=== PATIENT | male | born 1990 | race Caucasian/White ===

== ENCOUNTER 2018-02-26 18:46 | Emergency (ER) | payer OTHER ==
[2018-02-26] MEDS ORDERED: Lidocaine 1% INJ* 10 MG/ML 30 ML SDV INJ ONE (19:14)
--- NOTE | 2018-02-26 19:20 | RAD ---
INDICATION: Right ring finger injury. TECHNIQUE: 3 views of the right brain finger were obtained. FINDINGS: There is diffuse soft tissue swelling which is most prominent at the proximal interphalangeal joint. There is posterior dislocation of the middle phalanx relative the proximal phalanx. The bones are slightly overriding. In addition there is a displaced volar plate fracture at the base of the middle phalanx. There is also a small punctate chip fracture present anteriorly adjacent to the base of the middle phalanx. IMPRESSION: FRACTURE DISLOCATION OF THE FINGER AT THE PROXIMAL INTERPHALANGEAL JOINT.
--- NOTE | 2018-02-26 19:45 | ED ---
Upper Extremity Pain - HPI Summary HPI Summary: 27-year-old male presents with right ring finger injury 2 days ago. He states he fell and work and landed on his right finger. He is not able to bend his finger is stuck at the right PIP. He denies any numbness or tingling. He denies any wrist pain. He denies any other injury. He also has a stye in his left eye. He denies any change in vision. Has been taking ibuprofen for his pain. He is right-handed. - History of Current Complaint Chief Complaint: EDExtremityUpper Stated Complaint: RT HAND INJURY Time Seen by Provider: 02/26/18 18:59 - Allergies/Home Medications Allergies/Adverse Reactions: Allergies Allergy/AdvReac Type Severity Reaction Status Date / Time No Known Allergies Allergy Verified 07/05/16 10:58 Home Medications: Home Medications NK [No Home Medications Reported] 02/26/18 [History Confirmed 02/26/18] PMH/Surg Hx/FS Hx/Imm Hx Endocrine/Hematology History: Denies: Hx Anticoagulant Therapy Cardiovascular History: Denies: Hx Myocardial Infarction Infectious Disease History: No Infectious Disease History: Denies: History Other Infectious Disease, Traveled Outside the [place] in Last 30 Days - Family History Known Family History: Positive: None - Social History Alcohol Use: None Substance Use Type: Reports: None Smoking Status (MU): Light Every Day Tobacco Smoker Have You Smoked in the Last Year: Yes Review of Systems Negative: Fever Negative: Chest Pain Negative: Shortness Of Breath Positive: Myalgia - right finger All Other Systems Reviewed And Are Negative: Yes Physical Exam Triage Information Reviewed: Yes Vital Signs On Initial Exam: Initial Vitals Temp Pulse Resp BP Pulse Ox 98.1 F 80 16 152/90 99 02/26/18 18:51 02/26/18 18:51 02/26/18 18:51 02/26/18 18:51 02/26/18 18:51 Vital Signs Reviewed: Yes Appearance: Positive: Well-Appearing Skin: Positive: Warm, Dry Head/Face: Positive: Normal Head/Face Inspection Eyes: Positive: Normal, Conjunctiva Clear, Other: - stye to left eye ENT: Positive: Pharynx normal Respiratory/Lung Sounds: Positive: Clear to Auscultation, Breath Sounds Present Cardiovascular: Positive: Normal, RRR Musculoskeletal: Positive: Limited @ - pip of right ring finger, Other - Tenderness over PIP, cap refill less than 2 seconds, good pulses Neurological: Positive: Normal Psychiatric: Positive: Normal Procedures - Joint Reduction finger Joint Reduction Site: other Specify Other Joint Reduced: right ring finger Reduction Attempts: 2 - placed in finger splint Pre-Procedure NV Exam: Yes Post Joint Reduction Film: joint not reduced Diagnostics - Vital Signs Vital Signs Temp Pulse Resp BP Pulse Ox 02/26/18 18:51 98.1 F 80 16 152/90 99 - Laboratory Lab Statement: Any lab studies that have been ordered have been reviewed, and results considered in the medical decision making process. - Radiology finger Xray Interpretation: Positive (See Comments) - IMPRESSION: FRACTURE DISLOCATION OF THE FINGER AT THE PROXIMAL INTERPHALANGEAL JOINT. Radiology Interpretation Completed By: Radiologist finger post reduction Xray Interpretation: Positive (See Comments) - partial reduction Radiology Interpretation Completed By: ED Physician Course/Dx - Course Course Of Treatment: 27-year-old male presents with right ring finger injury 2 days ago. He states he fell and work and landed on his right finger. He is not able to bend his finger is stuck at the right PIP. He denies any numbness or tingling. He denies any wrist pain. He denies any other injury. He also has a stye in his left eye. He denies any change in vision. Has been taking ibuprofen for his pain. He is right-handed. On exam has edema noted to the PIP of right ring finger. Neurovascular intact. X-ray shows displacement. Attempted reduction and felt it reduce but then it would pop back. attempted a second reduction and splinted it as best could. X-ray shows some improvement. We'll have follow-up with orthopedist for definitive care. told to place heat on stye. Patient understands agrees with plan. - Diagnoses Differential Diagnosis/HQI/PQRI: Positive: Fracture (Closed), Strain, Sprain Provider Diagnoses: Stye, Finger dislocation Discharge - Sign-Out/Discharge Documenting (check all that apply): Patient Departure - Discharge Plan Condition: Good Disposition: HOME Patient Education Materials: Finger Fracture (ED), Stye (ED) Referrals: Rosemary Sanderson MD [Medical Doctor] - No Primary Care Phys,NOPCP [Primary Care Provider] - Additional Instructions: Keep finger in splint ice, elevate Follow up with ortho Take tyenlol or ibuprofen for pain every 6 hours Return to ED if develop any new or worsening symptoms - Billing Disposition and Condition Condition: GOOD Disposition: Home
[2018-02-26 20:58] VITALS: BP 120/64
--- NOTE | 2018-02-27 07:46 | RAD ---
HISTORY: reduced finger? COMPARISONS: February 26, 2018 at 7:14 PM VIEWS: 3, Frontal, lateral, and oblique views of the fourth digit of the right hand FINDINGS: BONE DENSITY: Normal. BONES: Again noted is a fracture of the volar aspect of the base of the middle phalanx of the fourth digit. JOINTS: There is no arthropathy. ALIGNMENT: There is persistent but decreased dorsal subluxation of the middle phalanx with respect to the proximal phalanx. SOFT TISSUES: Unremarkable. OTHER FINDINGS: None. IMPRESSION: FRACTURE OF THE BASE OF THE MIDDLE PHALANX OF THE FOURTH DIGIT WITH PERSISTENT BUT DECREASED SUBLUXATION OF THE PIP JOINT R0
== END 2018-02-26 20:57 | disposition home or self-care (01) ==
LOC: ED 18:46
DX: H00.029 Hordeolum internum unspecified eye, unspecified eyelid (principal); S63.259A Unspecified dislocation of unspecified finger, initial encounter; M79.644 Pain in right finger(s); F17.210 Nicotine dependence, cigarettes, uncomplicated; X58.XXXA Exposure to other specified factors, initial encounter; Y92.9 Unspecified place or not applicable
CPT/HCPCS: 73140; 96374; 99282

== ENCOUNTER 2018-03-05 09:52 | Day surgery (SDC) | payer OTHER ==
--- NOTE | 2018-02-28 17:42 | HP ---
PREOPERATIVE HISTORY AND PHYSICAL: DATE OF ADMISSION: 03/05/18 [facility] CHIEF COMPLAINT: Right ring finger injury. HISTORY OF PRESENT ILLNESS: Adrian is a 27-year-old male who fell and injured his right hand on 02/20/18. He was seen at the emergency room and had some x-rays, which showed a fracture dislocation of his PIP joint. This was reduced, but he has persistent subluxation of the PIP joint. He has been splinted and has persistent pain. He has been using ibuprofen for pain control. He presents for closed reduction and pinning of the right ring finger PIP joint. PAST MEDICAL HISTORY: Negative. PAST SURGICAL HISTORY: Negative. MEDICATIONS: Ibuprofen 800 mg p.o. t.i.d. p.r.n. DRUG ALLERGIES: None. FAMILY HISTORY: Noncontributory. SOCIAL HISTORY: He lives with his spouse. 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 Smokes a pack of cigarettes a day for 5 years. Occasionally lifts weights and occasionally uses alcohol perhaps 2 times per month. He denies recreational drug use. REVIEW OF SYSTEMS: Negative for cephalic, cardiovascular, respiratory, gastrointestinal, genitourinary, other musculoskeletal, skin, neurologic, endocrine, and hematologic symptoms. PHYSICAL EXAMINATION GENERAL: He is a healthy-appearing, very pleasant young man, in minimal distress at rest. VITAL SIGNS: He is 69 inches, weight is 162 pounds. Pulse 88, blood pressure 102/86, respirations 16. HEENT: Exam is unremarkable. His eye movements are concentric. NECK: He has good range of motion of his neck without pain. No masses are palpated. LUNGS: Clear to auscultation, except for a slight expiratory wheeze. Good inspiratory effort. HEART: Regular rate and rhythm without murmur. ABDOMEN: Soft, nontender, and nondistended. MUSCULOSKELETAL: He has swelling and lost the motion of the right ring finger at the PIP joint. Neurovascular function is intact. NEUROLOGICAL: He is alert and oriented without focal deficits. IMPRESSION: Right ring finger proximal interphalangeal joint fracture subluxation. PLAN: Plan is for closed reduction and pinning of the right ring finger proximal interphalangeal joint. The surgical procedure, risks, and benefits were explained to the patient today and he agrees to proceed. [id number]/[facility] #: [id number] [facility]ITALTiffanie
[~2018-03-05 09:52] MED LIST: Buffered Lidocaine 0.9% SYRIN* 5 ML/SYR SYRINGE INTRADERM ONE; Lidocaine 1% INJ* 10 MG/ML 30 ML SDV ONE
[2018-03-05] MEDS ORDERED: ceFAZolin 2 GM PREMIX (*) 2 GM/50 ML BAG IVPB ONE (10:30)
[2018-03-05] MEDS ORDERED: fentaNYL* 50 MCG/ML 2 ML VIAL (100 MCG VIAL) ONE (11:44)
[2018-03-05] MEDS ORDERED: Midazolam* 1 MG/ML 2 ML VIAL (2 MG) ONE ×2 (11:44→12:38)
[2018-03-05] MEDS ORDERED: Propofol* 10 MG/ML 20 ML BTL IV PUSH ONE (11:44)
[2018-03-05 13:23] VITALS: BP 113/74
--- NOTE | 2018-03-06 04:56 | OP ---
DATE OF OPERATION: 03/05/18 [facility] DATE OF : 89 SURGEON: Dr. Kirby. PERSONNEL RECRUITER: RONALDO Cantu ANESTHESIA: Local MAC. PRE-OP DIAGNOSIS: Fracture dislocation of the right ring finger proximal interphalangeal joint. POST-OP DIAGNOSIS: Fracture dislocation of the right ring finger proximal interphalangeal joint. OPERATIVE PROCEDURE: Open reduction and pinning, right ring finger PIP joint. ESTIMATED BLOOD LOSS: 0. TOURNIQUET TIME: About 20 minutes. INDICATION FOR PROCEDURE: Adrian is a 27-year-old male who suffered an injury of his right ring finger. He has a fracture dislocation, which was not successfully treated closed. He presents for closed reduction and pinning. DESCRIPTION OF PROCEDURE: The patient was brought to the operating room and was given a digital block anesthetic with 10 cc of 1% plain lidocaine. Additional 10 cc was given during the procedure. The skin of his right hand and forearm was prepped and draped in the usual sterile fashion. First we attempted closed reduction and this was unsuccessful so the hand and forearm were exsanguinated and tourniquet elevated to 250 mmHg. A Chevron incision was made on the ring finger palmar surface of the PIP joint, resected through the subcutaneous tissue down to the flexor tendon sheath. The sheath was opened between the A2 and A4 pulleys and the flexor tendons were retracted. There was a volar fragment. Once this was retracted, I was able to reduce the PIP joint. We attempted to repair the volar fragment with a Mitek suture anchor but the anchor did not secure in the bone, so the PIP joint was pinned with two 0.045- inch K-wires across the joint with it reduced and then the volar plate was repaired with soft tissue with a 4-0 nylon suture. The skin edges were then reapproximated with 4-0 nylon suture. The wound was dressed with Xeroform, 4 x 4, Webril, and a volar splint. The patient tolerated the procedure well, and was brought to the recovery room in good condition. [id number]/[facility] #: [id number] [facility]ITALTiffanie
--- NOTE | 2018-03-06 10:24 | RAD ---
INDICATION: Right hand injury COMPARISONS: February 26, 2018 TECHNIQUE: Fluoroscopy was provided for a surgical procedure. Total fluoroscopy time is: 3 minutes, 26 seconds FINDINGS: Spot images demonstrate percutaneous fixation across the fourth PIP joint. IMPRESSION: FLUOROSCOPY WAS PROVIDED FOR A SURGICAL PROCEDURE CPT II Codes: G9500
== END 2018-03-05 13:36 | disposition home or self-care (01) ==
LOC: OREAST 09:52
PROVIDERS: ATTEND Orthopaedic Surgery
DX: S62.614A Displaced fracture of proximal phalanx of right ring finger, initial encounter for closed fracture (principal); Z72.0 Tobacco use; W19.XXXA Unspecified fall, initial encounter; Y92.9 Unspecified place or not applicable
CPT/HCPCS: 76000; C1776; J0690; J2250; J2704; J3010

== ENCOUNTER 2019-11-09 13:01 | Emergency (ER) | payer OTHER ==
[2019-11-09 13:29] VITALS: BP 152/95
[2019-11-09] MEDS ORDERED: Ibuprofen TAB* 400 MG PO ONE (13:38)
--- NOTE | 2019-11-09 14:19 | UC ---
Lower Extremity/Ankle HPI - HPI Summary HPI Summary: dropped a large patio brink on to his left great toe last night---pain swelling and bruising--- - History of Current Complaint Chief Complaint: UCLowerExtremity Stated Complaint: TOE INJURY Time Seen by Provider: 11/09/19 14:10 Hx Obtained From: Patient Onset/Duration: Sudden Onset, Lasting Days - 1, Still Present Pain Intensity: 7 Pain Scale Used: 0-10 Numeric Aggravating Factor(s): Standing, Ambulation Alleviating Factor(s): Rest Able to Bear Weight: Yes - with pain - Allergies/Home Medications Allergies/Adverse Reactions: Allergies Allergy/AdvReac Type Severity Reaction Status Date / Time No Known Allergies Allergy Verified 11/09/19 13:21 Home Medications: Home Medications Ibuprofen TAB* [Motrin TAB* 600 MG] 600 mg PO Q6H PRN #30 tab 11/09/19 [Rx] PMH/Surg Hx/FS Hx/Imm Hx Previously Healthy: Yes Other History Of: Negative For: Anticoagulant Therapy - Surgical History Surgical History: None - Family History Known Family History: Positive: None - Social History Occupation: Employed Full-time Lives: With Family Alcohol Use: Occasionally Alcohol Amount: FEW DRINKS/MONTH Substance Use Type: None Smoking Status (MU): Heavy Every Day Tobacco Smoker Type: Cigarettes Amount Used/How Often: 1PPD PAST 5 YRS Have You Smoked in the Last Year: Yes Household Exposure Type: Cigarettes Review of Systems All Other Systems Reviewed And Are Negative: Yes Constitutional: Positive: Negative Skin: Positive: Bruising - left great toe and medial portion of foot Eyes: Positive: Negative ENT: Positive: Negative Respiratory: Positive: Negative Cardiovascular: Positive: Negative Gastrointestinal: Positive: Negative Genitourinary: Positive: Negative Motor: Positive: Decreased ROM - left great toe Neurovascular: Positive: Negative Musculoskeletal: Positive: Arthralgia - left great toe and medial aspect of foot Neurological/Mental Status: Positive: Negative Psychological: Positive: Negative Is Patient Immunocompromised?: No Physical Exam Triage Information Reviewed: Yes Appearance: Well-Appearing, No Pain Distress, Well-Nourished Vital Signs: Initial Vital Signs Temp 97.9 F 11/09/19 13:19 Pulse 98 11/09/19 13:19 Resp 18 11/09/19 13:19 BP 152/95 11/09/19 13:19 Pulse Ox 99 11/09/19 13:19 Vital Signs Reviewed: Yes Eye Exam: Normal Eyes: Positive: Conjunctiva Clear ENT Exam: Normal ENT: Positive: Normal ENT inspection, Hearing grossly normal. Negative: Trismus , Muffled voice, Hoarse voice Dental Exam: Normal Neck exam: Normal Neck: Positive: Supple, Nontender Respiratory Exam: Normal Respiratory: Positive: Chest non-tender, No respiratory distress, No accessory muscle use Cardiovascular Exam: Normal Cardiovascular: Positive: RRR, Pulses Normal, Brisk Capillary Refill Musculoskeletal Exam: Other Musculoskeletal: Positive: ROM Limited @ - left great toe, Edema @ - left great to and 1 mt area Neurological Exam: Normal Neurological: Positive: Alert, Muscle Tone Normal Psychological Exam: Normal Skin Exam: Other Skin: Positive: Other - bruising and erythema left great toe Diagnostics - Radiology No standard instances Radiology Interpretation Completed By: Radiologist - no fracture Lower Extremity Course/Dx - Course Course Of Treatment: rice, katy cam boot, ibuprofen follow with ortho prn, follow bp with pcp referral made - Differential Dx/Diagnosis Provider Diagnosis: Hypertension, Contusion of left great toe without damage to nail Discharge ED - Sign-Out/Discharge Documenting (check all that apply): Patient Departure All imaging exams completed and their final reports reviewed: Yes - Discharge Plan Condition: Stable Disposition: HOME Prescriptions: Ibuprofen TAB* [Motrin TAB* 600 MG] 600 mg PO Q6H PRN #30 tab PRN Reason: pain Patient Education Materials: Foot Contusion (ED), Hypertension (ED), R.I.C.E. Treatment (ED) Referrals: Care [facility] [Outside] (bp recheck 1-4 weeks ) Sugey Mims MD [Medical Doctor] - If Needed - Billing Disposition and Condition Condition: STABLE Disposition: Home
== END 2019-11-09 14:40 | disposition home or self-care (01) ==
LOC: UCEAST 13:01
DX: S90.112A Contusion of left great toe without damage to nail, initial encounter (principal); W20.8XXA Other cause of strike by thrown, projected or falling object, initial encounter; Y92.9 Unspecified place or not applicable; I10 Essential (primary) hypertension; F17.210 Nicotine dependence, cigarettes, uncomplicated
CPT/HCPCS: 99212; A9270-GY; G0463